=== PATIENT | male | born 1985 | race Caucasian/White ===

== ENCOUNTER 2024-05-11 20:45 | Emergency (ER) | payer BC ==
[~2024-05-11] VITALS: Ht 195.6 cm; Wt 116.0 kg
[2024-05-11 23:20] VITALS: BP 129/97
== END 2024-05-11 23:22 | disposition home or self-care (01) | DRG 951 ==
LOC: ED 20:45
DX: Z04.89 Encounter for examination and observation for other specified reasons (principal)